=== PATIENT | male | born 1980 | race Caucasian/White ===

== ENCOUNTER → 2018-04-11 | Outpatient (CLI) | payer OTHER ==
--- NOTE | 2018-04-12 09:39 | MR ---
EXAMINATION TYPE: MR brain wo/w con DATE OF EXAM: 04/11/2018 COMPARISON: None HISTORY: Numbness left arm CONTRAST: Performed utilizing 7 mL intravenous Gadavist gadolinium contrast. TECHNIQUE: Multiplanar, multiecho imaging on a 3.0 Desiree magnet is performed through the brain. Stud y is performed within 24 hours of arrival to the hospital. The craniovertebral junction is normal. The pituitary is normal. Diffusion-weighted imaging is performed. No abnormal hyperintensity is present to suggest an acute i ntracranial infarct or acute ischemic change. There are couple of subcortical white matter changes, not out of proportion to the patient age. These are nonspecific. Microvascular ischemic change and changes from migraine headaches could be consider ed within the differential Ventricles and sulci are appropriate for the patient age. No abnormal enhancement is evident. IMPRESSIONS: 1. MRI brain pre and postcontrast of the brain appears within normal limits
== END | disposition home or self-care (01) ==
LOC: RADMRIMAIN 13:22
PROVIDERS: ATTEND Family Medicine
DX: M62.81 Muscle weakness (generalized) (principal)
CPT/HCPCS: 70553; A9581